=== PATIENT | male | born 1945 | race Caucasian/White ===

== ENCOUNTER 2024-03-08 05:46 | Day surgery (SDC) | payer MEDICARE ==
[2024-03-08] VITALS (10 sets, daily range): BP systolic 106–137; BP diastolic 60–85; PULSE 62–82; RESP 11–18; TEMP 98.2; O2SAT 92–95
[~2024-03-08] VITALS: Ht 195.6 cm; Wt 92.6 kg
[2024-03-08] MEDS ORDERED: METO-539 PO (06:28)
[2024-03-08] MEDS ORDERED: APIX5TAB3 PO (06:28)
[2024-03-08] MEDS ORDERED: FLUO30CR36 (06:30)
[2024-03-08] MEDS ORDERED: FLUT1BLS4 INH (06:30)
[2024-03-08] MEDS ORDERED: FLO0.4C PO (06:30)
[2024-03-08] MEDS ORDERED: HYDR200T73 PO (06:33)
[2024-03-08] MEDS ORDERED: ALB0.5UD INH (06:34)
[2024-03-08 06:54] LABS: ALBUMIN 3.7 G/DL (3.4-5.0); ANION GAP 8 (8-16); BLOOD UREA NITROGEN 11 MG/DL (7-18); BUN/CREATININE RATIO 11.7 (10.0-20.0); CALCIUM 8.8 MG/DL (8.5-10.1); CHLORIDE 104 MMOL/L (99-107); CREATININE 0.94 MG/DL (0.60-1.10); GLUCOSE 102 MG/DL (70-104); POTASSIUM 4.2 MMOL/L (3.5-5.1); SODIUM 137 MMOL/L (135-145); TOTAL CARBON DIOXIDE 24.9 MMOL/L (24-32); eCRCL 82 ML/MIN; eGFR 78 ML/MIN
[2024-03-08] MEDS ORDERED: LIDOcaine 1% W/epiNEPHrine 1:100,000 20ml vial ONE (07:27)
[2024-03-08] MEDS ORDERED: midazolam 1 mg/ML 2ml injection ONE (07:27)
[2024-03-08] MEDS ORDERED: fentaNYL/PF 50MCG/1 ML 2ML syringe ONE ×2 (07:27→09:25)
[2024-03-08] MEDS ORDERED: clindamycin 600mg/D5W 50ml 50 ML IV ONE (07:28)
[2024-03-08] MEDS ORDERED: iohexol 350 MG/ML 50ML vial IV ONE (07:28)
[2024-03-08] MEDS: clindamycin-Cleocin 900mg/D5W 50 ML IV ONE (08:01)
[2024-03-08] MEDS ORDERED: HYDROcodone/acetaminophen 10/325mg tab PO PRN (10:30)
[2024-03-08] MEDS: vancomycin/NS 1 GM ADD-VANTAGE 250 ML X 1 DOSE IV ONE (11:42)
[2024-03-08] MEDS: HYDROcodone/acetaminophen 5mg/325mg tablet PO PRN (11:56)
== END 2024-03-08 13:45 | disposition home or self-care (01) ==
LOC: SSTAY O 05:46
PROVIDERS: ATTEND Internal Medicine Cardiovascular Disease
DX: I49.5 Sick sinus syndrome (principal); I48.0 Paroxysmal atrial fibrillation; J44.9 Chronic obstructive pulmonary disease, unspecified; I42.0 Dilated cardiomyopathy; Z79.899 Other long term (current) drug therapy; Z98.890 Other specified postprocedural states; Z88.0 Allergy status to penicillin; Z88.8 Allergy status to other drugs, medicaments and biological substances
CPT/HCPCS: 33208; 36415; 71046; 80048; 93005; C1785; C1898; J2250; J3010; J3370; J3490; J7030; Q9967; 99152; 99153; A4565; A6449

== ENCOUNTER 2024-05-18 09:46 | Day surgery (SDC) | payer MEDICARE ==
[~2024-05-18] VITALS: Ht 195.6 cm; Wt 95.6 kg
[2024-05-18] VITALS (10 sets, daily range): BP systolic 114–145; BP diastolic 68–87; PULSE 68–89; RESP 12; TEMP 98.1; O2SAT 94–100
[~2024-05-18 09:46] MED LIST: ALB0.5UD INH; APIX5TAB3 PO; FLO0.4C PO; FLUO30CR36; FLUT1BLS4 INH; HYDR200T73 PO; METO-539 PO
[2024-05-18] MEDS ORDERED: amiodarone 150mg/dext, iso-os 100 ML IV ONE (10:05)
[2024-05-18] MEDS ORDERED: atropine 0.1mg/ml 10ml syringe IV ONE (10:05)
[2024-05-18] MEDS ORDERED: LORazepam 0.5 MG tablet PO ONE (10:05)
[2024-05-18] MEDS ORDERED: diphenhydrAMINE 25mg capsule PO ONE (10:05)
[2024-05-18] MEDS ORDERED: normal saline 1000ml 1,000 ML IV SCH (10:05)
[2024-05-18] MEDS ORDERED: FLEC50TA28 PO (10:37)
[2024-05-18] MEDS ORDERED: METO-539 PO (10:37)
[2024-05-18] MEDS: MIDAZolam 1mg/ml 10ml vial IV ONE (11:04)
[2024-05-18] MEDS: morphine 10mg/ml inj. IV ONE (11:05)
[2024-05-18] MEDS ORDERED: FLEC50TA3 PO (12:18)
[2024-05-18] MEDS ORDERED: METO-395 PO (12:18)
[2024-05-18] MEDS ORDERED: APIX5TAB3 PO (12:18)
== END 2024-05-18 12:30 | disposition home or self-care (01) ==
LOC: SSTAY O 09:46
PROVIDERS: ATTEND Internal Medicine Cardiovascular Disease
DX: I48.19 Other persistent atrial fibrillation (principal); I48.92 Unspecified atrial flutter; I10 Essential (primary) hypertension; I42.9 Cardiomyopathy, unspecified; Z95.0 Presence of cardiac pacemaker; Z88.0 Allergy status to penicillin; Z88.8 Allergy status to other drugs, medicaments and biological substances
CPT/HCPCS: 92960; 93005; J2250; J2274; J7030